=== PATIENT | female | born 1985 | race Caucasian/White ===

== ENCOUNTER 2017-04-28 08:14 | Day surgery (SDC) | payer OTHER ==
[~2017-04-28] VITALS: Ht 160 cm; Wt 77.1 kg
[~2017-04-28 08:14] MED LIST: FLONASE16 G1 BOTH NARES; METOPROLOL SUCC25 MG PO; MUCINEX600 MG PO
[2017-04-28] MEDS ORDERED: PROZAC40 MG PO (08:40)
[2017-04-28 08:54] VITALS: BP 116/70
[2017-04-28 12:03] VITALS: BP 112/67
[2017-04-28 12:35] VITALS: BP 136/77
== END 2017-04-28 12:45 | disposition home or self-care (01) ==
LOC: SDC 08:14
PROC: 10D17ZZ Extraction of Products of Conception, Retained, Via Natural or Artificial Opening (ICD-10-PCS; principal; 2017-04-28)
DX: O03.4 Incomplete spontaneous abortion without complication (principal); R00.0 Tachycardia, unspecified; F31.9 Bipolar disorder, unspecified; F41.9 Anxiety disorder, unspecified; G43.909 Migraine, unspecified, not intractable, without status migrainosus; F17.200 Nicotine dependence, unspecified, uncomplicated; Z86.19 Personal history of other infectious and parasitic diseases; Z82.49 Family history of ischemic heart disease and other diseases of the circulatory system; Z83.3 Family history of diabetes mellitus
CPT/HCPCS: 86900; 86901; 88305; J0690; J1885; J3010

== ENCOUNTER 2018-04-20 04:51 | Inpatient (IN) | payer OTHER ==
[~2018-04-20] VITALS: Ht 162.6 cm; Wt 99.3 kg
[~2018-04-20 04:51] MED LIST changes: +PRENATAL TABLE1 EAC3 PO; +PROZAC40 MG PO; +TOPROL XL25 MG PO; +ZOVIRAX400 MG PO
[2018-04-20 05:16] VITALS: BP 124/80
[2018-04-20 05:17] VITALS: BP 124/80
[2018-04-20 05:38] LABS: BASOPHIL (%) 0.2 % (0-1); EOSINOPHIL (%) 0.8 % (0-5); EOSINOPHIL COUNT 0.1 K/uL (0-0.3); HEMATOCRIT 32.5 % (36.0-46.0); HEMOGLOBIN 11.2 G/DL (11.9-15.5); IMMATURE GRANULOCYTE (%) 0.9 % (0.0-0.7); LYMPHOCYTE (%) 17.5 % (15-42); MCH 29.9 PG (29.0-34.0); MCHC 34.5 G/DL (30.0-36.0); MCV 86.9 FL (83-99); MONOCYTE (%) 6.4 % (3-12); MONOCYTE COUNT 1.1 K/uL (0-0.8); NEUTROPHIL (%) 74.2 % (45-76); NEUTROPHIL COUNT 12.5 K/uL (1.8-6.4); PLATELET COUNT 298 K/uL (156-360); RBC DIS.WIDTH-CV 13.4 % (11.8-14.6); RBC DIS.WIDTH-SD 42.2 % (39-53); RED BLOOD COUNT 3.74 M/uL (3.80-5.20); WHITE BLOOD COUNT 16.8 K/uL (4.1-10.2)
[2018-04-20 05:53] VITALS: BP 121/77
[2018-04-20 06:27] LABS: AMPHETAMINE NEGATIVE (500 ng/mL); BARBITURATES NEGATIVE (200 ng/mL); BENZODIAZEPINES NEGATIVE (150 ng/mL); BUPRENORPHINE NEGATIVE (10 ng/mL); COCAINE NEGATIVE (150 ng/mL); METHADONE NEGATIVE (200 ng/mL); METHAMPHETAMINE NEGATIVE (500 ng/mL); OPIATES (MORPHINE) NEGATIVE (100 ng/mL); OXYCODONE NEGATIVE (100 ng/mL); PHENCYCLIDINE NEGATIVE (25 ng/mL); PROPOXYPHENE NEGATIVE (300 ng/mL); THC CANNABINOIDS NEGATIVE (50 ng/mL); TRICYCLIC ANTIDEPRESSANTS NEGATIVE (300 ng/mL)
[2018-04-20 10:48] VITALS: BP 110/68
[2018-04-20 19:23] VITALS: BP 103/55
[2018-04-20 23:07] VITALS: BP 117/60
[2018-04-21 02:26] VITALS: BP 111/59
[2018-04-21 06:01] LABS: BASOPHIL (%) 0.2 % (0-1); EOSINOPHIL (%) 1.1 % (0-5); EOSINOPHIL COUNT 0.1 K/uL (0-0.3); HEMATOCRIT 28.6 % (36.0-46.0); HEMOGLOBIN 9.3 G/DL (11.9-15.5); IMMATURE GRANULOCYTE (%) 0.8 % (0.0-0.7); LYMPHOCYTE (%) 21.4 % (15-42); LYMPHOCYTE COUNT 2.7 K/uL (1.0-2.8); MCH 28.7 PG (29.0-34.0); MCHC 32.5 G/DL (30.0-36.0); MCV 88.3 FL (83-99); MONOCYTE (%) 9.1 % (3-12); MONOCYTE COUNT 1.2 K/uL (0-0.8); NEUTROPHIL (%) 67.4 % (45-76); NEUTROPHIL COUNT 8.6 K/uL (1.8-6.4); PLATELET COUNT 250 K/uL (156-360); RBC DIS.WIDTH-CV 13.6 % (11.8-14.6); RBC DIS.WIDTH-SD 44.1 % (39-53); RED BLOOD COUNT 3.24 M/uL (3.80-5.20); WHITE BLOOD COUNT 12.8 K/uL (4.1-10.2)
[2018-04-21 19:14] VITALS: BP 113/56
[2018-04-21 22:51] VITALS: BP 106/52
[2018-04-22 03:32] VITALS: BP 114/56
[2018-04-22] MEDS ORDERED: IBUPROFEN800 MG PO (09:42)
[2018-04-22] MEDS ORDERED: ENDOCET 5-3251 EACH PO (09:42)
== END 2018-04-22 11:17 | disposition home or self-care (01) | DRG 765 ==
LOC: 2WEST 04:51 → 2SOUTH 09:36 → 2WEST 04-22 11:17
PROVIDERS: Obstetrics & Gynecology
PROC: 10D00Z1 Extraction of Products of Conception, Low, Open Approach (ICD-10-PCS; principal; 2018-04-20)
DX: O34.73 Maternal care for abnormality of vulva and perineum, third trimester (principal); O99.02 Anemia complicating childbirth; D62 Acute posthemorrhagic anemia; D50.9 Iron deficiency anemia, unspecified; O98.32 Other infections with a predominantly sexual mode of transmission complicating childbirth; A60.00 Herpesviral infection of urogenital system, unspecified; O99.344 Other mental disorders complicating childbirth; F41.9 Anxiety disorder, unspecified; F31.9 Bipolar disorder, unspecified; O99.214 Obesity complicating childbirth; E66.9 Obesity, unspecified; O99.334 Smoking (tobacco) complicating childbirth; F17.210 Nicotine dependence, cigarettes, uncomplicated; Z68.30 Body mass index [BMI] 30.0-30.9, adult; Z3A.39 39 weeks gestation of pregnancy; Z37.0 Single live birth
CPT/HCPCS: 85025; 86850; 86900; 86901; 93005; J0690; J1200; J2274; J2405; J7120; S0020